=== PATIENT | male | born 1975 | race Caucasian/White ===

== ENCOUNTER 2019-02-27 20:35 | Emergency (ER) | payer SELFPAY ==
[~2019-02-27] VITALS: Ht 177.8 cm; Wt 89.4 kg
--- NOTE | 2019-02-27 20:38 | ED.ADGEN ---
Adult General Chief Complaint Chief Complaint ".. I was washing a paring knife.. and cut my Rt. index finger..." HPI HPI Patient is a 43 year old male who presents with above hx and complaints Right hand index finger 1,5 cm laceration to dorsal side distal joint. Patient is right-hand dominant. Distal neurovascular intact. Patient up-to-date with vaccinations. No recent travel or specific ill contacts. Currently follows at [facility]. Patient works with a [employer]. Signed to 3 months course at [employer]. No recent travel or ill contacts. Normally healthy.. Review of Systems Review of Systems Constitutional: Denies fever or chills [] Eyes: Denies change in visual acuity, redness, or eye pain [] HENT: Denies nasal congestion or sore throat [] Respiratory: Denies cough or shortness of breath [] Cardiovascular: No additional information not addressed in HPI [] GI: Denies abdominal pain, nausea, vomiting, bloody stools or diarrhea [] : Denies dysuria or hematuria [] Musculoskeletal: Denies back pain or joint pain [] Integument: Denies rash or skin lesions []complex laceration right index finger Neurologic: Denies headache, focal weakness or sensory changes [] Endocrine: Denies polyuria or polydipsia [] All other systems were reviewed and found to be within normal limits, except as documented in this note. Family History Family History Noncontributory Current Medications Current Medications Current Medications Medications (Trade) Dose Ordered Sig/Joya Start Time Stop Time Status Last Admin Dose Admin Acetaminophen (Tylenol) 1,000 mg 1X ONCE 02/27/19 21:15 02/27/19 21:21 DC 02/27/19 21:20 1,000 MG Bacitracin (Bacitracin Topical Pkt) 6 pkt 1X ONCE 02/27/19 21:15 02/27/19 21:21 DC 02/27/19 21:15 6 PKT Lidocaine HCl 20 ml 1X ONCE 02/27/19 21:15 02/27/19 21:21 DC 02/27/19 21:20 20 ML Allergies Allergies Allergies Coded Allergies Type Severity Reaction Last Updated Verified No Known Drug Allergies 02/27/19 No Physical Exam Physical Exam Constitutional: Well developed, well nourished, no acute distress, non-toxic appearance. [] HENT: Normocephalic, atraumatic, bilateral external ears normal, oropharynx moist, no oral exudates, nose normal. [] Eyes: PERRLA, EOMI, conjunctiva normal, no discharge. [] Neck: Normal range of motion, no tenderness, supple, no stridor. [] Cardiovascular:Heart rate regular rhythm, no murmur [] Lungs & Thorax: Bilateral breath sounds clear to auscultation [] Abdomen: Bowel sounds normal, soft, no tenderness, no masses, no pulsatile masses. [] Skin: Warm, dry, no erythema, no rash. [] Laceration right index finger distal joint 1.5 cm Back: No tenderness, no CVA tenderness. [] Extremities: No tenderness, no cyanosis, no clubbing, ROM intact, no edema. [] Neurologic: Alert and oriented X 3, normal motor function, normal sensory function, no focal deficits noted. [] Psychologic: Affect normal, judgement normal, mood normal. [] Current Patient Data Vital Signs Vital Signs Date Time Temp Pulse Resp B/P (MAP) Pulse Ox O2 Delivery O2 Flow Rate FiO2 02/27/19 21:23 88 18 155/114 (128) 99 Room Air 02/27/19 20:35 98.0 EKG EKG [] Radiology/Procedures Radiology/Procedures [] Course & Med Decision Making Course & Med Decision Making Pertinent Labs and Imaging studies reviewed. (See chart for details) Procedure note-suture- handwasher surgical soap and water., Betadine to edge of wound. We irrigated wound. Digital block with lidocaine and local block with lidocaine. Wound re-irrigated range of motion. Closed to 3-4-0 Prolene. Dressing applied. Keep wound clean and dry. Polysporin 4 times a day. Follow-up primary care. Sutures out in 10 days. Return if any concerns. [] Final Impression Final Impression 1. Laceration Rt index finger 1.5 cm - dorsal surface[] Dragon Disclaimer Dragon Disclaimer This electronic medical record was generated, in whole or in part, using a voice recognition dictation system. Dragon Disclaimer This chart was dictated in whole or in part using Voice Recognition software in a busy, high-work load, and often noisy Emergency Department environment. It may contain unintended and wholly unrecognized errors or omissions. LISETH SEAMAN MD Feb 27, 2019 20:38
[2019-02-27] MEDS ORDERED: ACET500T68 PO (21:07)
[2019-02-27] MEDS ORDERED: IBUP800T19 PO (21:07)
[2019-02-27] MEDS ORDERED: BACI28.34 TP (21:07)
[2019-02-27] MEDS ORDERED: ACETAMINOPHEN 500 MG TABLET PO ONE (21:15)
[2019-02-27] MEDS ORDERED: BACITRACIN ZINC TOPICAL OINT PACKET. TP ONE (21:15)
[2019-02-27] MEDS ORDERED: LIDOCAINE 2% 20 ML VIAL. IJ ONE (21:15)
[2019-02-27 21:23] VITALS: BP 155/114
== END 2019-02-27 21:23 | disposition home or self-care (01) ==
LOC: ER 20:35
DX: S61.210A Laceration without foreign body of right index finger without damage to nail, initial encounter (principal); W26.0XXA Contact with knife, initial encounter; Y93.89 Activity, other specified; Y92.89 Other specified places as the place of occurrence of the external cause; Y99.8 Other external cause status
CPT/HCPCS: 12001; 99283; J2001